=== PATIENT | female | born 1960 | race Hispanic/Latino ===

== ENCOUNTER 2018-06-26 11:29 | Day surgery (SDC) | payer OTHER ==
[2018-06-26] MEDS ORDERED: Midazolam 2 MG/2 ML VIAL ONE (12:46)
[2018-06-26] MEDS ORDERED: Lidocaine Hydrochloride 5 ML INJ ONE (12:46)
[2018-06-26] MEDS ORDERED: Propofol 10 mg/ml Inj (20 ML) ONE (12:48)
[2018-06-26] MEDS ORDERED: Lidocaine 4% (Laryng-O-Jet) Kit MM ONE (12:56)
[2018-06-26 13:50] VITALS: BMI 33.2
--- NOTE | 2018-06-26 17:20 | CARD ---
APPROVED REPORT Date of service: 06/26/2018 EXAM: Transesophageal echocardiogram with color flow Doppler. INDICATION R/O vegetation Mitral Valve E/A ratio0.0 TDI E/Lateral E'0.0E/Medial E'0.0 Reason For Test : Rule out endocarditis. PROCEDURE After obtaining informed consent, patient underwent transesophageal echo in the [facility]. Type of Sedation : Conscious Sedation Sedation was provided by anesthesiologist. Sedation was achieved with intravenously. Transesophageal probe was inserted and advanced into esophagus without difficulty. The BEBETO was performed without complications. Throughout the procedure, the blood pressure, pulse oximetry, cardiac rhythm, and rate were monitored. The patient tolerated the procedure without adverse effects. Recovery from conscious sedation was uneventful and vital signs were stable. LEFT VENTRICLE The left ventricle is normal size. There is normal left ventricular wall thickness. The left ventricular function is normal. The left ventricular ejection fraction is within the normal range. There is normal LV segmental wall motion. RIGHT VENTRICLE The right ventricle is normal size. There is normal right ventricular wall thickness. The right ventricular systolic function is normal. ATRIA The left atrium size is normal. The right atrium size is normal. AORTIC VALVE The aortic valve is normal in structure. There is trace aortic regurgitation. MITRAL VALVE The mitral valve is normal in structure. There is no evidence of mitral valve prolapse. TRICUSPID VALVE The tricuspid valve is normal in structure. There is no tricuspid valve regurgitation noted. <Conclusion> No vegitation seen
== END 2018-06-26 15:00 | disposition left against medical advice (07) ==
LOC: C.CATHLAB 11:29
PROVIDERS: ATTEND Specialist
DX: I35.1 Nonrheumatic aortic (valve) insufficiency (principal)
CPT/HCPCS: 82948; 93312; J2250; J2704; J3010